=== PATIENT | female | born 1960 | race Caucasian/White ===

== ENCOUNTER → 2016-09-03 09:31 | Outpatient (CLI) | payer OTHER ==
[2013-04-08 07:18] VITALS: BMI 21.0
[~2016-09-03 09:31] MED LIST: PREMPRO 0.625/21 TAB PO
== END | disposition home or self-care (01) ==
LOC: D.US 09:31
DX: R10.11 Right upper quadrant pain (principal); K90.49 Malabsorption due to intolerance, not elsewhere classified

== ENCOUNTER → 2016-09-17 07:42 | Outpatient (CLI) | payer OTHER ==
[2013-04-08 07:18] VITALS: BMI 21.0
== END | disposition home or self-care (01) ==
LOC: D.NM 07:42
DX: R10.11 Right upper quadrant pain (principal)

== ENCOUNTER 2017-01-20 10:54 | Day surgery (SDC) | payer OTHER ==
[2017-01-20 12:03] LABS: BASOPHILS 1.7 % (0-2); EOSINOPHILS 1.5 % (0-7); HEMATOCRIT 38.6 % (36.0-48.0); HEMOGLOBIN 13.1 g/dL (12-16); LYMPHOCYTES 40.8 % (15-50); MCH 32.3 pg (26.0-34.0); MCHC 33.9 g/dL (31.0-37.0); MCV 95.3 fL (80.0-100.0); MEAN PLATELET VOLUME 9.1 fL (7.4-10.4); MONOCYTES 10.7 % (2-11); NEUTROPHILS 45.3 % (40-80); PLATELET COUNT 252 10x3/uL (130-400); RBC 4.05 10x6/uL (4.00-5.40)
[2017-01-20] MEDS ORDERED: ESTRACE 0.5 MG0.5 MG PO (12:10)
[2017-01-20] MEDS ORDERED: SYNTHROID25 MCG PO (12:10)
[2017-01-20 12:17] VITALS: BP 95/67; BMI 21.0
[2017-01-20 12:28] LABS: CALC OSMOLALITY 280 mosm/kg (275-300); CALCIUM 9.2 mg/dL (8.5-10.1); CARBON DIOXIDE 27.2 mmol/L (21.0-32.0); CHLORIDE - SERUM 105 mmol/L (98-107); CREATININE - SERUM 0.7 mg/dL (0.6-1.3); GLUCOSE 84 mg/dL (74-106); POTASSIUM - SERUM 4.4 mmol/L (3.5-5.1); SODIUM 142 mmol/L (136-145); UREA NITROGEN 10 mg/dL (7-18); eGFR NON AFRICAN AMERICAN > 90 mL/min (90-120)
--- NOTE | 2017-01-20 18:17 | NUR ---
1615 PT REMOVE HER IV , STANDING IN ROOM DRESSED ASKING TO LEAVE
--- NOTE | 2017-01-23 10:04 | OP ---
PATIENT NAME: COLT CHANEL MEDICAL RECORD: [id number] :58 LOCATION:D.OPS ADMISSION DATE: SURGEON: EPHRAIM SCHMITZ MD DATE OF OPERATION: 01/20/2017 PREOPERATIVE DIAGNOSES: 1. History of a complex rectal polyp. 2. History of colon polyps. POSTOPERATIVE DIAGNOSES: 1. History of a complex rectal polyp. 2. History of colon polyps with no evidence of regrowth of the rectal polyp. 3. New small rectal polyp 5-mm that was lost during the extraction process. 4. procedural bleeding. PROCEDURES: 1. Total colonoscopy to cecum. 2. Hot biopsy forceps polypectomy times 1. 3. Application of the endoscopic clips times 2. SURGEON: Ephraim Schmitz MD [employer] CONTROL OFFICER: None. BLOOD LOSS: Minimal. ANESTHESIA: IV sedation. COMPLICATIONS: None. The risks, possible complications, and alternatives to the procedure were explained to the patient. She elects to proceed. ENDOSCOPIC COURSE: The patient was conveyed to the endoscopy suite electively on 01/20/2017. IV sedation was induced by the anesthesia staff. The patient was placed in the Brito position. A digital rectal examination was performed. A colonoscope was inserted through the anus. It was easily advanced to the cecum. The prep was adequate. I slowly withdrew the endoscope. I dragged the folds. The pullback was greater than an 18-minute pullback. I used direct imaging as well as narrow band imaging to visualize the colon and rectum. A retroflexed view was obtained in the rectum. A small sessile polyp was noted. It was removed in its entirety with the hot biopsy forceps polypectomy technique. However, during the retrieval process, it was lost. There was some bleeding from the polypectomy site. This was controlled with the application of 2 endoscopic clips. I then unretroflexed the scope and removed it under direct vision. dismiss the [facility] I will see her in my office on a p.r.n. basis. I will order him follow up with Dr. Perdue in 3 years for surveillance colonoscopy. TRANSINT:[id number] Voice Confirmation ID: [id number] DOCUMENT ID: [id number] OPERATIVE REPORT [id number] COLT CHANEL EPHRAIM SCHMITZ MD at 1004 CC: ESSIE PERDUE MD and JJ FOLEY MD [id number] DICTATION DATE: 01/20/17 1616 FURRIER APPRENTICE: 01/20/17 1710 [facility] 01/20/17 [facility] [address] [place] [address]
--- NOTE | 2017-01-23 10:04 | HP ---
PATIENT: COLT CHANEL MEDICAL RECORD: [id number] ACCOUNT: [id number] LOCATION:[facility] : 58 ADMISSION DATE: 01/20/17 HISTORY AND PHYSICAL EXAMINATION CHIEF COMPLAINT: Here for colonoscopy. HISTORY OF PRESENT ILLNESS: The patient has had a history of a very suspicious polyp in the distal rectum. She last underwent a colonoscopy back in March 2013. Only a scar was left in the distal rectum at that time and it was biopsied. She had another secondary polyp at 40-45 cm and this was a small sessile polyp. The risks, possible complications, and alternatives to procedure were explained to the patient. She elects to proceed. HOME MEDICINES: She is on hormone therapy, also Synthroid. PAST MEDICAL AND SURGICAL HISTORY: Hypothyroidism and history of colon polyps. REVIEW OF SYSTEMS: Negative for coronary artery disease or hypertension. Negative for CVA or seizures. ALLERGIES: No known drug allergies. SOCIAL HISTORY: Nonsmoker. PHYSICAL EXAMINATION: GENERAL: The patient does not appear acutely ill. She does not appear chronically ill. VITAL SIGNS: Reviewed. EARS: External ears appear normal. EYES: Extraocular movements are intact. NECK: Trachea is midline. CHEST: No intercostal retractions. PULMONARY: Nonlabored. No stridor. ABDOMEN: No peritonitis with movement. IMPRESSION: History of colon polyps. PLAN: Will be surveillance colonoscopy. TRANSINT:[id number] Voice Confirmation ID: [id number] DOCUMENT ID: [id number] EPHRAIM SCHMITZ MD at 1004 CC: ESSIE LEE MD and JJ FOLEY MD [id number] DICTATION DATE: 01/20/17 1512 [employer] SALES PROFESSIONAL: 01/20/17 1533 [facility] 01/20/17 [place] [id number] [place] [id number]
== END 2017-01-20 16:45 | disposition home or self-care (01) ==
LOC: D.OPS 10:54
PROVIDERS: Anesthesiology
DX: Z12.11 Encounter for screening for malignant neoplasm of colon (principal); E03.9 Hypothyroidism, unspecified; Z87.19 Personal history of other diseases of the digestive system; K62.1 Rectal polyp; Z01.812 Encounter for preprocedural laboratory examination